=== PATIENT | female | born 1990 | race Caucasian/White ===

== ENCOUNTER 2024-01-03 14:10 | Day surgery (SDC) | payer OTHER, SELFPAY ==
[2024-01-03] VITALS (14 sets, daily range): BP systolic 96–131; BP diastolic 47–78
--- NOTE | 2024-01-03 10:07 | ED.GENMED ---
Addendum entered and electronically signed by Keisha Mcgregor MD 01/03/24 13:47:
Patient personally evaluated by me. Has significant tenderness in right lower quadrant but is nontoxic. Lungs are clear.
Original Note:
History of Present Illness
General
Chief Complaint: Abdominal Pain
Source: patient
Time Seen by Provider: 01/03/24 09:53
Travel History
Have you had any contact with someone who has COVID-19?: No
Do you have any symptoms of coronavirus? Fever > 100 degrees, chills, cough, shortness of breath, sore throat, loss of taste or smell, muscle aches, or headache?: No
History of Present Illness
History of Present Illness:
33-year-old female presenting to the emergency department for evaluation of right-sided abdominal pain that started last night, initially in the right flank but today became more localized to the right mid to lower abdomen, constant dull aching
sensation, currently 7 out of 10, last night took 3 Advil with some relief. Patient endorses some mild nausea but no vomiting or diarrhea. Patient went to urgent care this morning who advised patient come to the ER to be further evaluated.
Patient notes that she had a spontaneous miscarriage 2 weeks ago without any complications. She is G5, P2. Patient spoke to her DRY CLEANING ATTENDANT on the way to the emergency department and it was noted that patient is not having any further vaginal bleeding and
her test at home are no longer reading positive so DRY CLEANING ATTENDANT did not suspect retained products of conception. Patient denies any fevers, chills, rigors, bowel changes, urinary symptoms, current vaginal bleeding or discharge.
Past History
Past History
ED Past Medical History: None
ED Past Surgical History:
Social History
Tobacco: Non-smoker
Alcohol: Occasional
Drug: None
Personal:
Living: with family
Employment: Employed
Review of Systems
Review of Systems
All Other Systems: ROS reviewed and negative except as documented in HPI and ROS
Phy Exam
Physical Exam
Physical Exam:
GENERAL: Alert , in no apparent distress
EYE: clear conjunctiva b/l
HEAD: NCAT
ENT: mmm.
CARDIAC: Regular rate and rhythm .
LUNGS: Clear breath sounds bilaterally, no acute respiratory distress, no wheezes/rales/rhonchi
ABDOMEN: Soft, mild tenderness periumbilically and within the right mid abdomen, no r/g, no cvat, negative Melendez's
NEUROLOGICAL: Alert and oriented
SKIN: Warm and dry, skin intact.
MUSCULOSKELETAL: well perfused.
PSYCH: Normal and appropriate interaction.
Scores
Heart Failure Risk
Heart Failure Risk Score: Not Applicable
Heart Score for Chest Pain Patients
STEMI patient?: Not applicable
Withdrawal Assessment of Alcohol
Withdrawal Assessment Completed?: Not applicable
Course
Orders/Labs/Results
Orders:
Orders
01/03/24 10:09
Complete Blood Count/With Diff Urgent
Comprehensive Metabolic Panel Urgent
HCG, Beta Quantitative [Beta HCG Quantitative] Urgent
Is this a screen?: No
Lipase Urgent
Urinalysis Reflex To Culture Urgent
Date Specimen was Collected: 01/03/24
Time Specimen was Collected: 10:08
Urine Microscopic Reflex Cult Urgent
Urine Culture Urgent
YOGESH Source: U
Specimen Description:
Date Specimen was Collected: 01/03/24
Time Specimen was Collected: 10:08
01/03/24 11:01
CT Abd/pelvis W Iv Cont Urgent
Comment:
Reason For Exam: right flank/mid abd pain, recent miscarriage
01/03/24 12:08
Piperacillin/Tazo 3.375 Gram [Zosyn] 3.375 gram in 50 ml IV NOW
01/03/24 12:10
Type+Screen Urgent
PTT Urgent
Prothrombin Time Urgent
01/03/24 12:14
Morphine Sulfate 2 mg IV NOW STA
Abnormal Lab Results
01/03/24
10:09
WBC 16.7 H 10^3/uL
(4.8-10.8)
Abs Immat Gran (auto) 0.1 H 10^3/uL
(0-0.05)
Absolute Neuts (auto) 12.6 H 10^3/uL
(1.4-6.5)
Absolute Monos (auto) 0.9 H 10^3/uL
(0.1-0.6)
Neutrophils % 75.5 H %
(42.2-75.2)
Lymphocytes % 18.2 L %
(20.5-51.1)
Creatinine 0.5 L mg/dL
(0.6-1.0)
Leukocyte Esterase Rfl Trace A
(Negative)
Urine Bacteria (Reflex) Moderate A
(Negative)
01/03/24 10:09
01/03/24 10:09
Vital Signs
Initial and Last Documented VS:
Initial Vital Signs
Temp Pulse Resp BP Pulse Ox
98.9 F 73 16 131/78 98
01/03/24 09:58 01/03/24 09:58 01/03/24 09:58 01/03/24 09:58 01/03/24 09:58
Last Documented Vital Signs
Temp Pulse Resp BP Pulse Ox
98.9 F 73 16 131/78 98
01/03/24 09:58 01/03/24 09:58 01/03/24 09:58 01/03/24 10:02 01/03/24 09:58
MDM/Problems Addressed
Differential Diagnosis Includes:
Renal/ureteral colic, appendicitis, ovarian cyst, retained products, endometritis
MDM/Problems Addressed:
33-year-old female presenting to the emergency department for evaluation of right-sided flank/abdominal pain with onset since last night, today seems to be more localized to the right mid abdomen. Patient states urgent care was more concerned for
possible retained products however patient is without any further bleeding and her test have been negative at home making this diagnosis a little less likely. Appendicitis certainly considered given the right-sided abdominal pain. Given
the right-sided flank pain now into the right side of the abdomen renal/ureteral colic considered. Patient declining anything for pain or nausea. Will check labs and urine. Anticipate will order imaging will wait for labs and urine to return.
*Pulse Oximetry
Patient hypoxic: no
*Critical Care Note
Total Time (30-74mins, 75-104mins- exclusive of procedures): Not Applicable
Patient Management
Discussion with other providers: Safety Lamp Keeper and Radiologist
Escalation/DeEscalation of care consider admission/obs:
11 AM: Patient's labs show a leukocytosis of 16,000. Given her elevated white blood cell count and right-sided abdominal pain will obtain a CT scan to further evaluate. Patient continues to decline any medication
12:02 PM: Informed by radiology that patient does have acute appendicitis on CT scan. I notified general surgery on-call and I am awaiting response with anticipation of admission for surgery. Zosyn ordered. Patient now would like something for
pain.
12:15 PM: General surgery to come see patient with plans to take to OR today
ED Attending Note
-
Portions of this chart may have been created with voice recognition software.� Occasional wrong word or��sound alike� substitutions may have occurred due to the inherent limitations of voice recognition software.
Discharge Plan
Departure
Patient Disposition: Admit
Date of Disposition: 01/03/24
Time of Disposition: 12:31
Presentation/result/management discussed w/ accepting /DO: Nay
Discharge Problem:
Acute appendicitis
Referrals:
NONE,* [Family Provider] -
Interventions
Interventions:
*Risk Screen - Suicide Last Done: 01/03/24 09:58
*General Assessment Last Done: 01/03/24 09:58
*Neglect/Abuse Screening Last Done: 01/03/24 09:58
ED- Fall Risk Assessment Last Done: 01/03/24 09:58
II-Uqnrfr-Umdkduqlhy Assessment Last Done: 01/03/24 09:58
Discharge Date and Time
Print Language: ITALIAN
[2024-01-03 10:28] LABS: % Basophils 0.4 % (0-2); % Eosinophils 0.2 % (0-6); % Immature Granulocytes 0.3 % (0-0.5); % Lymphocytes 18.2 % (20.5-51.1); % Monocytes 5.4 % (1.7-9.3); % Neutrophils 75.5 % (42.2-75.2); Absolute Basophils 0.1 10^3/uL (0-0.2); Absolute Immature Granulocytes 0.1 10^3/uL (0-0.05); Absolute Monocytes 0.9 10^3/uL (0.1-0.6); Absolute Neutrophils 12.6 10^3/uL (1.4-6.5); Hematocrit 38.9 % (37.0-47.0); Hemoglobin 13.5 g/dL (12.0-16.0); Mean Corp Hgb Conc. 34.7 g/dL (33.0-37.0); Mean Corpuscular Hgb 29.5 pg (27.0-31.0); Mean Corpuscular Volume 84.9 fL (81.0-99.0); Mean Platelet Volume 9.5 fL (7.4-10.4); Nucleated Red Blood Cells % 0 %; Platelet Count 299 10^3/uL (130-400); Red Blood Cell Count 4.58 10^6/uL (4.20-5.40); White Blood Cell Count 16.7 10^3/uL (4.8-10.8)
[2024-01-03 10:34] LABS: Urine Albumin Negative (Neg - Trace); Urine Bilirubin Negative (Negative); Urine Character Clear (Clear); Urine Color Yellow; Urine Glucose Negative (Negative); Urine Ketone Negative (Negative); Urine Leukocyte Trace (Negative); Urine Nitrite Negative (Negative); Urine Occult Blood Negative (Negative); Urine Urobilinogen Negative (Neg - 1+)
[2024-01-03 10:54] LABS: ALT (SGPT) 21 U/L (0-35); AST (SGOT) 20 U/L (14-36); Albumin 4.7 g/dl (3.5-5.0); Alkaline Phosphatase 68 U/L (38-126); Blood Urea Nitrogen 11 mg/dl (7-17); Calcium 9.7 mg/dl (8.4-10.2); Carbon Dioxide 24 mmol/L (22-30); Chloride 106 mmol/L (98-107); Glucose 98 mg/dl (70-99); Lipase 147 U/L (23-300); Potassium 4.1 mmol/L (3.5-5.1); Sodium 139 mmol/L (135-145); Total Bilirubin 0.5 mg/dl (0.2-1.3); Total Protein 7.6 g/dl (6.3-8.2); eGFR > 60.00
[2024-01-03 11:09] LABS: Beta HCG Quantitative < 2.39 mIU/ml
[2024-01-03 11:29] LABS: Urine Red Blood Cell None Seen /HPF (0-2)
[2024-01-03 11:30] LABS: Urine Bacteria Moderate (Negative)
[2024-01-03] MEDS: ZOSYN 50 IV ×2 (12:18→16:56)
[2024-01-03] MEDS: MORPHINE SULFATE 2 MG IV (12:20)
[2024-01-03 12:40] LABS: INR 1.07; PT 13.7 Sec (11.4-14.6)
[2024-01-03 12:41] LABS: APTT 34.5 Sec (23.4-35.0)
--- NOTE | 2024-01-03 13:34 | HPS.HSE ---
Addendum entered and electronically signed by William Tee MD 01/03/24 14:18:
Patient seen and examined with surgical STEEL INSPECTOR. Agree with documented history and physical.
HPI: 33-year-old female presented with acute onset of abdominal pain. It started yesterday evening with a lumbar back ache which developed into anterior abdominal pain and localized overnight into the right lower quadrant. She has been unable to
get comfortable with her pain. Anorexia but no nausea or vomiting. Bowels recently been moving regularly. No similar episodes like this in the past.
No significant past medical history. x 2.
AFVSS
NAD AAOx3
ABD: Soft, nondistended, tenderness palpation localizing to the right lower quadrant with voluntary guarding and rebound.
CT abdomen/pelvis: Dilated and thickened appendix in the right lower quadrant with surrounding inflammatory changes but no free fluid or organizing fluid collection. Measures up to approximately 1 cm in diameter. No cecal thickening. TI normal.
No additional notable acute findings.
Assessment: 33-year-old female with acute appendicitis.
Reviewed with patient and her mother at bedside history, examination and CT imaging consistent with acute appendicitis. Discussed both operative and nonoperative management options and associated risks/benefits of approaches. Patient is in agreement
to proceed with appendectomy.
Laparoscopic appendectomy reviewed in detail with the patient. Discussed operative technique utilizing diagrams or drawings, alternative management options, benefits and potential risks such as but not limited to bleeding, infectious or wound
healing complications, iatrogenic injury to surrounding viscera and staple line leakage. Discussed the typical postoperative recovery pending operative findings.
Any of the patient's concerns or questions were fully addressed and informed consent was obtained.
Plan: OR for laparoscopic appendectomy.
Empiric antibiotic coverage with Zosyn.
Nothing by mouth, IV fluid hydration and supportive care awaiting operative room availability.
SCDs for DVT prophylaxis
Original Note:
Family Physician
-
Family Physician: * NONE
Chief Complaint
-
abdominal pain
History of Present Illness
This is a 33 yo female with a history of x2, and spontaneous miscarriage 2 weeks ago who presented through the ED with pain which began last night into her back with associated nausea and is now localized in the RLQ. She notes chills but
denies fevers or sweats. She has had poor appetite since onset of symptoms. On exam, she is tender with guarding to the RLQ with mild tenderness to the left as well.
Medical History
Past Medical History
Past Medical History: Reports None
Past Surgical History: Reports (x2)
Social History
Tobacco: Non-smoker
Alcohol: Occasional
Drug: None
Personal:
Living: With Family
Family History
Family History: Not pertinent
Allergies / Home Medications
Allergies reflects when Allergies were last updated in [facility].
Home Medications with original date entered in [facility]
Allergy/Medication List:
Patient Allergies
Allergy/AdvReac Type Severity Reaction Status Date / Time
No Known Allergies Allergy Unverified 01/03/24 09:57
If medication reconciliation has not been performed, why?: Medication List N/A
Review of Systems
-
History Source: Patient and Family
A 12 point ROS was completed and negative except as noted: Yes
Physical Exam
Vital Signs
Vital Signs
Temp Pulse Resp BP Pulse Ox
98.9 F 73 16 131/78 98
01/03/24 09:58 01/03/24 09:58 01/03/24 09:58 01/03/24 10:02 01/03/24 09:58
Physical Exam
General: Well Developed, Well Nourished and No Apparent Distress
HEENT: NormoCephalic and Moist mucous membranes
Respiratory: Non Labored Respirations
GI: Soft and Tender (RLQ with guarding, mild to LLQ)
Skin: Warm and Dry
Neuro: Awake, Alert and AO x 3
Psych: Calm
Laboratory Results
-
01/03/24 10:09
01/03/24 10:09
Laboratory Results
PT 13.7 Sec (11.4-14.6) 01/03/24 12:10
INR 1.07 01/03/24 12:10
APTT 34.5 Sec (23.4-35.0) 01/03/24 12:10
Total Bilirubin 0.5 mg/dl (0.2-1.3) 01/03/24 10:09
AST 20 U/L (14-36) 01/03/24 10:09
ALT 21 U/L (0-35) 01/03/24 10:09
Alkaline Phosphatase 68 U/L (38-126) 01/03/24 10:09
Lipase 147 U/L (23-300) 01/03/24 10:09
Data Reviewed
-
CT Scan: Image Personally Visualized and interpreted, Report Reviewed by me, Discussed with Physician, Discussed with Patient and Discussed with Family
Lab Data: Labs Reviewed by me, Discussed with Physician, Discussed with Patient and Discussed with Family
Old Records: Reviewed
Impression/Plan
-
IMPRESSION:
33 yo female with h/o x2 who presents with RLQ pain which began in her low back last night with associated nausea. AFVSS. Leukocytosis present. CT reviewed with findings consistent with acute appendicitis. Discussed operative vs medical
management with patient who is opting for operative management. Zosyn given in ED.
PLAN:
Keep NPO for Laparoscopic appendectomy this afternoon
Final dispo pending operative findings
--- NOTE | 2024-01-03 14:18 | W.SUR.PREOP ---
Pre-Operative Surgical Note
-
I have examined this patient prior to the performance of the scheduled procedure.
The patient's condition is unchanged from the time of the current History and
Physical and the patient is able to undergo the scheduled procedure.
--- NOTE | 2024-01-03 15:29 | W.IMMPOSTOP ---
Addendum entered and electronically signed by William Tee MD 01/03/24 19:43:
#[id number]
Original Note:
Surgical Immed Post Op Note
-
Primary Surgeon: Nay
Assisting Surgeon: None
Pre-op Diagnosis: Acute appendicitis
Post-op Diagnosis: Acute appendicitis
Procedure Performed: Laparoscopic appendectomy
Anesthesia Type: GETA +0.25% Marcaine
Specimen / Cultures: Appendix
Estimated Blood Loss: 4 mL
Complications: None immediate
Operative Findings: Acute uncomplicated appendicitis, distended, indurated, surrounding inflammation and a bit of exudate. No purulence, no abscess, no perforation or disruption of appendix.
Plan: Routine postop care, DC home when pain controlled, ambulating, tolerating p.o. intake
[2024-01-03] MEDS: NSS 1000 IV ×2 (15:47→16:28)
[2024-01-03] MEDS: ZOFRAN 4 MG IV (16:16)
[2024-01-03] MEDS: TORADOL 10 MG IV (18:22)
[2024-01-04] MEDS: ZOSYN 50 IV ×2 (00:11→05:36)
[2024-01-04] MEDS: TORADOL 10 MG IV ×2 (01:48→08:23)
[2024-01-04 03:49] VITALS: BP 95/50
[2024-01-04] MEDS: NSS 1000 IV (05:38)
[2024-01-04 07:25] VITALS: BP 102/54
--- NOTE | 2024-01-04 08:10 | W.PN.GS2 ---
Today's Communication / Plan
-
Dispo planning
Assessment / Plan
-
33 yo female who presented with acute appendicitis. Now POD #1 lap appi
AFVSS
Pain well controlled
Tolerating diet
--Continue regular diet
--Analgesics prn
--OOB/Ambulate
--Dispo planning
Subjective Data
-
Date of Service: January 04, 2024
Patient seen and examined at bedside. Denies n/v. Pain much improved from preop. Tolerating diet. Passing flatus. Pain well managed.
Objective Data
-
Intake and Output
01/03/24 01/04/24 01/05/24
06:59 06:59 06:59
Intake Total 2450 / 2450
Balance 2450 / 2450
Intake:
Oral fluids 880 / 880
IV fluids (Total) 1420 / 1420
Normosol 300 / 300
IV piggybacks 150 / 150
Other:
Number of approximated MODERATE 2
amounts of urine
Vital Signs
Temp Pulse Resp BP Pulse Ox
98.4 F 68 16 102/54 96
01/04/24 07:25 01/04/24 07:25 01/04/24 07:25 01/04/24 07:25 01/04/24 07:25
Lab Results
01/03/24 10:09
01/03/24 10:09
Calcium 9.7 mg/dl (8.4-10.2) 01/03/24 10:09
Total Bilirubin 0.5 mg/dl (0.2-1.3) 01/03/24 10:09
AST 20 U/L (14-36) 01/03/24 10:09
ALT 21 U/L (0-35) 01/03/24 10:09
Alkaline Phosphatase 68 U/L (38-126) 01/03/24 10:09
Total Protein 7.6 g/dl (6.3-8.2) 01/03/24 10:09
Albumin 4.7 g/dl (3.5-5.0) 01/03/24 10:09
Physical Exam
-
NAD
ABD soft, nt, nd
Incisions well approximated with intact glue
== END 2024-01-04 09:10 | disposition home or self-care (01) ==
LOC: PACU 14:10
PROVIDERS: Physician Assistant Medical; ATTENDING PHYSICIAN Surgery; EMERGENCY PHYSICIAN Emergency Medicine
DX: K35.80 Unspecified acute appendicitis (principal); K66.0 Peritoneal adhesions (postprocedural) (postinfection)
CPT/HCPCS: 44970; 88304; 74177; 80053; 81003; 81015; 83690; 84702; 85025; 85610; 85730; 86850; 86900; 86901; 87086; 96365; 96375; 99285; Q9967